=== PATIENT | female | born 1985 ===

== ENCOUNTER 2017-01-31 19:22 | Emergency (ER) | payer OTHER ==
[2017-01-31 19:28] VITALS: BMI 30.2
--- NOTE | 2017-01-31 19:28 | ED PDOC ---
Arrival/HPI - General Time Seen by Provider: 01/31/17 19:27 Historian: Patient - History of Present Illness Narrative History of Present Illness (Text): 01/31/17 19:28 This 31 yo female who denies pmh, presents to this ED c/o nasal congestion, cough, and sinuses pressure x 2 days. Patient denies sob, cp, weakness, paresthesias, hemoptysis, cp, or abnormal gait. Time/Duration: Other (2 days) Context: Home Past Medical History - Provider Review Nursing Documentation Reviewed: Yes Family/Social History - Physician Review Nursing Documentation Reviewed: Yes Family/Social History: Other (noncontributory) Allergies/Home Meds Allergies/Adverse Reactions: Allergies No Known Allergies Allergy (Verified 01/31/17 19:28) Review of Systems - Review of Systems Constitutional: Normal. absent: Fatigue, Weight Change, Fevers, Night Sweats Eyes: Normal ENT: Rhinorrhea, Sinus Congestion Respiratory: Normal. absent: SOB, Cough, Sputum, Wheezing Cardiovascular: Normal. absent: Chest Pain, Palpitations Gastrointestinal: Normal. absent: Abdominal Pain, Nausea, Vomiting Genitourinary Female: Normal. absent: Dysuria Musculoskeletal: Normal Skin: Normal. absent: Rash Neurological: Normal. absent: Headache, Dizziness, Focal Weakness, Gait Changes , Speech Changes, Facial Droop, Disequilibrium, Seizure Endocrine: Normal Hemo/Lymphatic: Normal Psychiatric: Normal Physical Exam Vital Signs Temp Pulse Resp BP Pulse Ox 01/31/17 19:33 98.2 F 84 20 120/65 100 Temperature: Afebrile Blood Pressure: Normal Pulse: Regular Respiratory Rate: Normal Appearance: Positive for: Well-Appearing, Non-Toxic, Comfortable Pain Distress: None Mental Status: Positive for: Alert and Oriented X 3 - Systems Exam Head: Present: Atraumatic, Normocephalic Pupils: Present: PERRL Extroacular Muscles: Present: EOMI Conjunctiva: Present: Normal Ears: Present: Normal, NORMAL TM, Normal Canal. No: Erythema, TM Bulging, Fluid , TM Perf Mouth: Present: Moist Mucous Membranes, Normal Lips, Normal Tounge, Normal Teeth. No: Drooling Pharnyx: Present: Normal. No: ERYTHEMA, EXUDATE, TONSILS ENLARGED Nose (External): Present: Atraumatic Nose (Internal): Present: Rhinorrhea Neck: Present: Normal Range of Motion, Trachea Midline. No: Meningeal Signs, Lymphadenopathy Respiratory/Chest: Present: Clear to Auscultation, Good Air Exchange. No: Respiratory Distress, Accessory Muscle Use Cardiovascular: Present: Regular Rate and Rhythm, Normal S1, S2. No: Murmurs Abdomen: Present: Normal Bowel Sounds. No: Tenderness, Distention, Peritoneal Signs Back: Present: Normal Inspection. No: CVA Tenderness Upper Extremity: Present: Normal Inspection, Normal ROM, NORMAL PULSES. No: Cyanosis, Edema Lower Extremity: Present: Normal Inspection, NORMAL PULSES, Normal ROM. No: Edema, CALF TENDERNESS Neurological: Present: GCS=15, CN II-XII Intact, Speech Normal, Motor Func Grossly Intact, Normal Sensory Function, Normal Cerebellar Funct, Gait Normal, Memory Normal Skin: Present: Warm, Dry, Normal Color. No: Rashes Psychiatric: Present: Alert, Oriented x 3, Normal Insight, Normal Concentration Medical Decision Making ED Course and Treatment: 01/31/17 19:45 Patient is resting comfortably, and is in no acute distress. Patient was instructed to follow up with PMD in 1-2 days for further evaluation Patient was recommended no to drive or operate machinery while taking Phenergan for at least 6 hours. Patient understood plan. Instruction was given in [place]-evaluation Time: 19:45 Reassessment Condition: Re-examined, Improved - Medication Orders Current Medication Orders: Discontinued Medications Amoxicillin/Clavulanate Potassium (Augmentin 875 Mg-125 Mg Tab) 1 tab PO STAT STA PRN Reason: Protocol Stop: 01/31/17 19:39 Promethazine HCl (Phenergan Syrup) 12.5 mg PO STAT STA Stop: 01/31/17 19:39 Disposition/Present on Arrival - Present on Arrival Any Indicators Present on Arrival: No History of DVT/PE: No History of Uncontrolled Diabetes: No Urinary Catheter: No History of Decub. Ulcer: No - Disposition Have Diagnosis and Disposition been Completed?: Yes Diagnosis: Sinusitis Disposition: HOME/ ROUTINE Disposition Time: 19:46 Patient Plan: Discharge Patient Problems: Current Active Problems Problem Status Onset Sinusitis Acute Condition: GOOD Discharge Instructions (ExitCare): Sinusitis (ED) Additional Instructions: Call private doctor for follow up visit in 1-2 days. Take medication as instructed with food. Return to emergency if symptoms worsen. Llame a la clinica para seguimiento medico. [facility] con comida. No maneje o maneje o use maquinas mientra navarro tomando Phenergan para congestion. Regrese a la emergencia si simptomas se empeora. Prescriptions: Amoxicillin/Clavulanate [Augmentin 875 MG-125 MG] 1 tab PO BID #20 tab Promethazine [Phenergan Syrup] 12.5 mg PO Q6H PRN #120 ml PRN Reason: Cough And Congestion Referrals: [facility] [Outside] - Follow up with primary [facility] [Outside] - Follow up with primary
[2017-01-31 19:34] VITALS: TEMP 98.2
[2017-01-31] MEDS ORDERED: Promethazine 6.25 MG/5 ML CUP PO STA (19:38)
[2017-01-31] MEDS ORDERED: Amoxicillin-Clav 875-125 mg Tab PO STA (19:38)
[2017-01-31 21:19] VITALS: BP 121/70; PULSE 80; RESP 17; O2SAT 98
== END 2017-01-31 20:55 | disposition home or self-care (01) ==
LOC: ED 19:22
DX: J32.9 Chronic sinusitis, unspecified (principal)